=== PATIENT | female | born 2000 | race Caucasian/White ===

== ENCOUNTER → 2018-05-01 14:02 | Outpatient (CLI) | payer OTHER, MEDICAID, SELFPAY ==
--- NOTE | 2018-05-01 14:06 | US_ITS ---
US breast LT complete Ordering Physician: Prem Ortez MD Patient Age: 18 years: Female HISTORY: ITS.REASON: breast mass Palpable area at nipple left breast TECHNIQUE: Ultrasound entire breast including axillary survey. COMPARISON :None FINDINGS Ultrasound left breast demonstrates diffusely dense tissue... Just beneath the skin at the region of nipple is a small 3.5 x 2.7 mm hypoechoic area. This could be a dermal entity or feature given its close relationship to just beneath skin surface. Such as a sebaceous cyst type feature.. However would suggest follow-up suggested in 3-4 months in this younger patient to further evaluate.. This 3.5 mm x 2.7 mm hypoechoic area-likely reflects debris-filled cyst or semisolid nodule Survey of the axillary regions demonstrate scattered benign axillary lymph nodes. Normal fatty hilum with thin cortex. IMPRESSION: Tiny 3.5 mm x 2.7 mm height hypoechoic nodule just beneath the skin near the nipple. . Most likely benign feature. May be of dermal, skin origin given it is just beneath the skin. As might be seen with with sebaceous cyst. It Follow-up ultrasound in 3-4 months initially patient suggested Interval repeat scanning may be warranted of this area should progress BI-RADS 3 Probable benign Recommendations. Short interval follow-up repeat left breast ultrasound 3-4 months: or sooner if this should progress
== END ==
PROVIDERS: Family Provider Obstetrics & Gynecology; PCP Family Medicine; Visit Provider Obstetrics & Gynecology
DX: N63.20 Unspecified lump in the left breast, unspecified quadrant (principal)
CPT/HCPCS: 76641

== ENCOUNTER → 2022-08-21 16:19 | Outpatient (CLI) | payer MEDICAID, SELFPAY ==
[2022-08-23 10:28] LABS: HIV Screen 4th Generation wRfx Non Reactive (Non Reactive)
[2022-08-23 12:18] LABS: Rapid Plasma Reagin Ab Titer Non Reactive (NonRea<1:1)
[2022-09-27 08:11] LABS: Hep A Ab, IgM NEGATIVE; Hepatitis B Surface Antigen NEGATIVE
[2022-09-27 08:12] LABS: Hepatitis B Core Antibody IgM NEGATIVE; Hepatitis C Antibody <0.1
== END ==
PROVIDERS: PCP Family Medicine; Visit Provider Obstetrics & Gynecology
DX: Z72.51 High risk heterosexual behavior (principal); Z11.4 Encounter for screening for human immunodeficiency virus [HIV]
CPT/HCPCS: 36415; 80074; 86592; 86703; G0432

== ENCOUNTER 2024-09-15 13:43 | Outpatient (CLI) | payer MEDICAID, SELFPAY ==
--- NOTE | 2024-09-15 13:47 | XR_ITS ---
PROCEDURE INFORMATION: Exam: XR Left Humerus Exam date and time: 09/15/2024 2:04 PM Age: 24 years old Clinical indication: Device placement; Other: Nexplanon control; Additional info: Nexplanon placement TECHNIQUE: Imaging protocol: Radiologic exam of the left humerus. Views: 2 or more views. COMPARISON: No relevant prior studies available. FINDINGS: Bones/joints: No acute fracture or malalignment. Lungs: Linear opacity compatible with Nexplanon implant projects over the subcutaneous fat of the left upper arm. Soft tissues: Unremarkable. IMPRESSION: Linear opacity compatible with Nexplanon implant projects over the subcutaneous fat of the left upper arm.
== END 2024-09-15 23:59 | disposition home or self-care (01) ==
LOC: RAD 13:45
PROVIDERS: PCP Internal Medicine Cardiovascular Disease; Visit Provider Obstetrics & Gynecology
DX: M79.602 Pain in left arm (principal)
CPT/HCPCS: 73060